=== PATIENT | male | born 1980 | race Caucasian/White ===

== ENCOUNTER 2019-12-30 16:12 | Emergency (ER) | payer BC ==
[~2019-12-30] VITALS: Ht 182.9 cm; Wt 95.3 kg
[2019-12-30 16:15] VITALS: Ht 182.9 cm; Wt 95.3 kg
[2019-12-30 17:06] LABS: AMPHETAMINE QUAL UR NONE DETECTED (See below)
[2019-12-30 17:08] LABS: BASOPHIL % 1.5 % (0-2); PLATELET COUNT 166 x10^3mcL (130-400)
[2019-12-30 17:11] LABS: RED CELL DISTRIBUTION WIDTH 15.2 % (11.5-14.5)
[2019-12-30 17:23] LABS: CARBON DIOXIDE 25.2 mmol/L (21-32); CHLORIDE SERUM 102 mmol/L (98-107); CREATININE SERUM 0.8 mg/dL (0.7-1.3); GFR1 > 60 mL/min; GLUCOSE SERUM 90 mg/dL (74-106); POTASSIUM SERUM 4.8 mmol/L (3.5-5.1); SODIUM SERUM 138 mmol/L (136-145)
[2019-12-30 17:29] LABS: ALBUMIN 3.9 g/dL (3.4-5.0); ALKALINE PHOSPHATASE 95 U/L (46-116); ALT/SGPT 142 U/L (16-63); AST/SGOT 89 U/L (15-37); BILIRUBIN TOTAL 0.51 mg/dL (0.20-1.00); MAGNESIUM 2.1 mg/dL (1.8-2.4)
[2019-12-30 17:30] LABS: TOTAL PROTEIN, SERUM 8.3 g/dL (6.4-8.2)
[2019-12-30 19:11] VITALS: BP 161/104
== END 2019-12-30 19:11 | disposition home or self-care (01) ==
LOC: ED 16:12
PROVIDERS: Emergency Medicine
DX: I10 Essential (primary) hypertension (principal); F10.10 Alcohol abuse, uncomplicated; F17.210 Nicotine dependence, cigarettes, uncomplicated
CPT/HCPCS: G0480; J2060; J3490